=== PATIENT | female | born 1990 | race African-American/Black ===

== ENCOUNTER 2018-01-30 07:00 | Outpatient (RCR) | payer BC | END 2018-02-24 | disposition home or self-care (01) | LOC: PTY 07:00 | DX: M54.5 Low back pain (principal) ==

== ENCOUNTER 2018-03-06 07:00 | Outpatient (RCR) | payer BC | END 2018-03-27 | disposition home or self-care (01) | LOC: PTY 07:00 | DX: M54.5 Low back pain (principal) ==

== ENCOUNTER 2018-04-03 07:00 | Outpatient (RCR) | payer BC | END 2018-04-26 | disposition home or self-care (01) | LOC: PTY 07:00 | DX: M54.5 Low back pain (principal); M54.10 Radiculopathy, site unspecified ==